=== PATIENT | female | born 1985 | race Caucasian/White ===

== ENCOUNTER 2021-01-04 13:30 | Inpatient (IN) | payer OTHER ==
[~2021-01-04] VITALS: Ht 175.3 cm; Wt 73.0 kg
[2021-01-20] MEDS ORDERED: PRENATAL TABLE1 EAC1 PO (08:41)
[2021-01-20] MEDS ORDERED: BIMATOPROST5 ML (11:09)
== END 2021-01-22 12:33 | disposition home or self-care (01) | DRG 768 ==
LOC: SURG-SUITE 01-20 06:52 → LDR 01-20 06:52 → OB/GYN 01-20 13:30 → SURG-SUITE 01-20 20:06
PROVIDERS: ADMIT Obstetrics & Gynecology Maternal & Fetal Medicine; ATTEND Obstetrics & Gynecology Maternal & Fetal Medicine
PROC: 10E0XZZ Delivery of Products of Conception, External Approach (ICD-10-PCS; principal; 2021-01-20)
PROC: 0DQR0ZZ Repair Anal Sphincter, Open Approach (ICD-10-PCS; 2021-01-20)
PROC: 0W8NXZZ Division of Female Perineum, External Approach (ICD-10-PCS; 2021-01-20)
PROC: 10907ZC Drainage of Amniotic Fluid, Therapeutic from Products of Conception, Via Natural or Artificial Opening (ICD-10-PCS; 2021-01-20)
PROC: 3E033VJ Introduction of Other Hormone into Peripheral Vein, Percutaneous Approach (ICD-10-PCS; 2021-01-20)
PROC: 4A1HXFZ Monitoring of Products of Conception, Cardiac Rhythm, External Approach (ICD-10-PCS; 2021-01-20)
DX: O70.20 Third degree perineal laceration during delivery, unspecified (principal); Z37.0 Single live birth; Z3A.40 40 weeks gestation of pregnancy; Z20.822 Contact with and (suspected) exposure to COVID-19

== ENCOUNTER 2021-01-10 11:14 | Outpatient (CLI) | payer OTHER | END 2021-01-10 12:37 | disposition home or self-care (01) | LOC: NST 11:14 | PROVIDERS: ATTEND Obstetrics & Gynecology Maternal & Fetal Medicine | DX: Z34.83 Encounter for supervision of other normal pregnancy, third trimester (principal) ==

== ENCOUNTER 2021-01-16 07:31 | Outpatient (CLI) | payer OTHER | END 2021-01-16 08:20 | disposition home or self-care (01) | LOC: NST 07:31 | PROVIDERS: ATTEND Obstetrics & Gynecology Maternal & Fetal Medicine | DX: Z34.83 Encounter for supervision of other normal pregnancy, third trimester (principal) ==

== ENCOUNTER 2021-01-19 07:18 | Outpatient (CLI) | payer OTHER ==
[2021-01-20] MEDS ORDERED: PRENATAL TABLE1 EAC1 PO (08:41)
[2021-01-20] MEDS ORDERED: BIMATOPROST5 ML (11:09)
== END 2021-01-19 08:22 | disposition home or self-care (01) ==
LOC: NST 07:18
PROVIDERS: ATTEND Obstetrics & Gynecology Maternal & Fetal Medicine
DX: Z34.83 Encounter for supervision of other normal pregnancy, third trimester (principal)